=== PATIENT | male | born 1990 | race Two or more races ===

== ENCOUNTER 2024-10-12 07:35 | Emergency (ER) | payer SELFPAY ==
[~2024-10-12] VITALS: Ht 180.3 cm; Wt 127.4 kg
[2024-10-12 07:51] VITALS: BP 135/82; PULSE 105; RESP 24; TEMP 97.5; O2SAT 97
--- NOTE | 2024-10-12 19:34 | ECG ---
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
== END 2024-10-12 07:56 | disposition left against medical advice (07) ==
LOC: EDBD 07:35 → ER 07:40
DX: I10 Essential (primary) hypertension (principal); Z53.21 Procedure and treatment not carried out due to patient leaving prior to being seen by health care provider
CPT/HCPCS: 93005